=== PATIENT | female | born 2000 | race Asian ===

== ENCOUNTER 2024-02-10 12:57 | Day surgery (SDC) | payer OTHER ==
[~2024-02-10] VITALS: Ht 160 cm; Wt 45.1 kg
[~2024-02-10 12:57] MED LIST: LR 1,000 ML IV SCH
[2024-02-10] MEDS ORDERED: PRENATAL TABLET PO (13:34)
[2024-02-10] MEDS ORDERED: TYLENOL 500MG500 MG PO (13:34)
[2024-02-10] MEDS ORDERED: MIRALAX PA17 GM/Dose PO (13:35)
[2024-02-10] MEDS ORDERED: IBU800 M1 PO (13:35)
[2024-02-10] MEDS ORDERED: STOOL SOFTENER100 M2 PO (13:35)
[2024-02-10] MEDS ORDERED: Scopolamine 1 MG Delivered 3-Day PATCH TD SCH (14:00)
[2024-02-10] MEDS ORDERED: Ondansetron 4 MG/2 ML VIAL IV ONE (14:00)
[2024-02-10 14:10] VITALS: BP 117/73; PULSE 85; TEMP 98.4
[2024-02-10] MEDS ORDERED: Midazolam 2 MG/2 ML VIAL ONE (16:27)
[2024-02-10] MEDS ORDERED: fentaNYL 50 MCG/ML 2 ML VIAL ONE (16:27)
[2024-02-10] MEDS ORDERED: Lidocaine PF 2% (20 MG/ML) 5 ML VIAL ONE (16:27)
[2024-02-10] MEDS ORDERED: Ketorolac 30 MG/ML VIAL ONE (16:28)
[2024-02-10] MEDS ORDERED: dexAMETHasone 10 MG/ML VIAL ONE (16:28)
[2024-02-10] MEDS ORDERED: NS 10 ML IV ONE (16:28)
[2024-02-10] MEDS ORDERED: Ondansetron 4 MG/2 ML VIAL ONE (16:28)
[2024-02-10] MEDS ORDERED: ROXICODONE 55 MG/TAB PO (17:43)
[2024-02-10] MEDS ORDERED: Lidocaine 2% (20 MG/ML) 20 ML UROJET UR ONE (17:43)
[2024-02-10] MEDS ORDERED: FLOMAX 0.40.4 MG/CAP PO (17:43)
[2024-02-10 18:45] VITALS: BP 118/63; PULSE 92
[2024-02-10 19:00] VITALS: BP 111/56; PULSE 87
[2024-02-10 19:02] VITALS: TEMP 97.4
[2024-02-10 19:15] VITALS: BP 121/69; PULSE 82
--- NOTE | 2024-02-10 19:29 | NUR ---
PATIENTS IV REMOVED FROM LEFT HAND FOR DISCHARGE ALL INTACKED. PATIENT TOLERATED WELL
[2024-02-10 19:30] VITALS: BP 123/56
--- NOTE | 2024-02-10 19:40 | NUR ---
Patient A/Ox4, ready to go home, reports minimal pain, went through all her discharge paperworks, questions answered, VSS, left the floor at 1947 with and 1 year old daughter, escorted by this nurse.
== END 2024-02-10 23:03 ==
LOC: SDCO 12:57 → SURG 18:45 → SDCO 19:47
DX: N20.1 Calculus of ureter (principal)
CPT/HCPCS: OP; C1769; C2617; J0690; J1100; J1885; J2250; J2405; J2704; J3010; J7120